=== PATIENT | female | born 1985 | race African-American/Black ===

== ENCOUNTER 2016-11-16 23:37 | Emergency (ER) | payer OTHER ==
[~2016-11-16] VITALS: Ht 167.6 cm; Wt 65.8 kg
[2016-11-16 23:57] VITALS: BP 124/70
[2016-11-17] MEDS ORDERED: CYCL10TA2 PO (00:51)
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
== END 2016-11-17 00:57 | disposition home or self-care (01) ==
LOC: ER 23:37
DX: S16.1XXA Strain of muscle, fascia and tendon at neck level, initial encounter (principal); E03.9 Hypothyroidism, unspecified; V49.49XA Driver injured in collision with other motor vehicles in traffic accident, initial encounter; Y93.89 Activity, other specified; Y92.89 Other specified places as the place of occurrence of the external cause; Y99.8 Other external cause status
CPT/HCPCS: 99283